=== PATIENT | female | born 2000 | race Two or more races ===

== ENCOUNTER 2024-03-26 13:03 | Emergency (ER) | payer OTHER ==
[2024-03-26 13:19] VITALS: BP 116/73; O2SAT 100
--- NOTE | 2024-03-26 13:46 | XRAY Report ---
PROCEDURE: Shoulder 2+V RT INDICATIONS: pain TECHNIQUE: 3 views of the shoulder were acquired. COMPARISON: None. FINDINGS: Bones: No fractures or dislocations. No suspicious bony lesions. Visualized ribs appear intact. Soft tissues: No suspicious soft tissue calcifications. The visualized lungs are within normal limi ts. IMPRESSION: No acute bony abnormality. Reviewed by: Karma Baugh MD on 03/26/2024 12:44 PM [facility] Approved by: Karma Baugh MD on 03/26/2024 12:44 PM [facility] Station ID: [id number]
--- NOTE | 2024-03-26 14:49 | ED Physician Documentation ---
History of Present Illness - Stated complaint Stated Complaint: RT SHOULDER PX - Chief complaint Chief Complaint: Trauma Ext - Additonal information Additional information: Patient is a 23-year-old female presenting to the emergency department with right shoulder pain after picking up her son last night and had the sudden onset of right shoulder pain when she picked him up. She notes this has never happened before. She has no previous trauma to the right shoulder. She has persistent pain this morning when she woke up and she did not take anything for symptoms. Patient denies numbness or tingling in her hand. She has no weakness in arm or her elbow only persistent pain with significant pain on movement to her right shoulder. PD PAST MEDICAL HISTORY - Past Medical History Past Medical History: No - Past Surgical History Past Surgical History: No - Present Medications Home Medications: Ambulatory Orders Medication Instructions Recorded Confirmed Acetaminophen [Tylenol] 500 mg PO Q4-6H #15 tablet 03/26/24 Cyclobenzaprine [Flexeril] 5 mg PO HS #20 tablet 03/26/24 Lidocaine Patch 5% [Lidoderm Patch] 1 patch TOP DAILY PRN #10 patch 03/26/24 - Allergies Allergies/Adverse Reactions: Allergies Allergy/AdvReac Type Severity Reaction Status Date / Time No Known Drug Allergies Allergy Verified 03/26/24 13:07 - Social History Does the pt smoke?: No Smoking Status: Never smoker Does the pt drink ETOH?: No Does the pt have substance abuse?: No - Immunizations Immunizations are current?: Yes - POLST Patient has POLST: No PD ED PE NORMAL - Vitals Vital signs reviewed: Yes - General General: Alert and oriented X 3 - HEENT HEENT: Atraumatic - Neck Neck: Supple, no meningeal sign - Cardiac Cardiac: RRR, No murmur, No gallop, No rub - Respiratory Respiratory: No respiratory distress, Clear bilaterally - Back Back: No spinal TTP, Other (No C-spine tenderness and full \rom of neck intact.) - Derm Derm: Normal color, Warm and dry, No rash - Extremities Extremities: No deformity - Neuro Neuro: Alert and oriented X 3 - Free text exam Free text exam: Right shoulder: Reproducible tenderness to anterior right shoulder on examination. No obvious step-off or deformity on exam. Patient has positive empty can test on examination. She has equal strength at wrist fingers and elbow on examination full range of motion of elbow on flexion and extension and supinate nation pronation intact. Radial pulses 2+. Sensation intact throughout equal bilaterally. Good capillary refill. Results - Vitals Vitals: Vital Signs - 24 hr 03/26/24 13:07 Temperature 36.8 C Heart Rate 67 Respiratory 16 Rate Blood Pressure 116/73 O2 Saturation 100 Oxygen O2 Source Room air - Rads (name of study) right shoulder x-ray Relevant Findings:: EMP independent interpretation of test PD Medical Decision Making - ED course Complexity details: reviewed results, re-evaluated patient ED course: Patient is a 23-year-old female presenting to the emergency department with right shoulder pain after picking up her son last night and had the sudden onset of right shoulder pain when she picked him up. She notes this has never happened before. She has no previous trauma to the right shoulder. Patient denies numbness or tingling in her hand. Patient denies any previous trauma to her right shoulder. She is breast-feeding at this time and did not take any medications this morning. Vital stable on arrival. Right shoulder: Reproducible tenderness to anterior right shoulder on examination. No obvious step-off or deformity on exam. Patient has positive empty can test on examination. She has equal strength at wrist fingers and elbow on examination full range of motion of elbow on flexion and extension and supinate nation pronation intact. Radial pulses 2+. Sensation intact throughout equal bilaterally. Good capillary refill. Physical exam otherwise benign no acute findings. X-ray of right shoulder shows no acute fracture no acute signs of dislocation. Given positive empty can test and reproducible pain on palpation of right shoulder concern for possible rotator cuff tear versus nerve impingement. Discussed with possible sling here in emergency department but with patient having to carry her son at home and concern for frozen shoulder we will hold off at this time and try pain medications. Discussed with patient we will try Flexeril but reviewed with patient concerns for breast-feeding only take it at night dump after taking the medication and was given a very small dose that she should only take once a day for a very short period of time. Patient will watch for any signs or symptoms changes in her son and was given instructions to return with any of the symptoms listed out in discharge paperwork. [place] with this plan. Departure - Departure Disposition: 01 Home, Self Care Clinical Impression: Muscle strain of right upper arm, Right shoulder injury Condition: Good Instructions: ED Strain Muscle Ext Comments: You are seen here in the emergency department for your right shoulder pain your workup here in the emergency department showed no acute findings. X-rays were reassuring. I have given you pain medications to take at home. Given you are b reast-feeding please only take Flexeril once at night and dump after to prevent it being in the breastmilk. You should also not take more than prescribed and watch for adverse findings including excessive fatigue decreased muscle tone or abnormal behavior in your child. These are signs that the treatment has gone through the breastmilk. They have given you patches as well. They should help with your symptoms. [place] and [place] as I suspect you may have a pinched nerve versus small muscle tear versus right shoulder sprain.
== END 2024-03-26 14:54 | disposition home or self-care (01) ==
LOC: ED 13:03
DX: S46.911A Strain of unspecified muscle, fascia and tendon at shoulder and upper arm level, right arm, initial encounter (principal); X50.0XXA Overexertion from strenuous movement or load, initial encounter
CPT/HCPCS: 99283; 99284